=== PATIENT | female | born 1980 | race American Indian/Alaskan Native ===

== ENCOUNTER → 2017-07-20 | Outpatient (CLI) | payer MEDICAID | LOC: SLR 11:00 | PROVIDERS: ATTEND Specialist | DX: G47.30 Sleep apnea, unspecified (principal); I10 Essential (primary) hypertension | CPT/HCPCS: G0399 ==

== ENCOUNTER 2017-12-05 06:52 | Day surgery (SDC) | payer MEDICAID ==
[2017-12-05] MEDS ORDERED: NACL 0.9% 1000 ML 1,000 ML ONE (07:06)
[2017-12-05] MEDS ORDERED: WATER FOR IRRIG STERILE IR ONE (07:35)
[2017-12-05] MEDS ORDERED: HURRICAINE ONE 20% TOPICAL SPRAY MM ×2 (07:36→07:50)
[2017-12-05] MEDS ORDERED: DIPRIVAN 10 MG/ML IV ONE (07:56)
[2017-12-05] MEDS ORDERED: NACL 0.9% 1000 ML 1,000 ML IV SCH (08:00)
--- NOTE | 2017-12-05 08:20 | Anesthesia Consultation ---
Anesthesia Consult and Med Hx Date of service: 12/05/17 - Airway Anesthetic Teeth Evaluation: Good ROM Head & Neck: Adequate Mental/Hyoid Distance: Adequate Mallampati Class: Class III Intubation Access Assessment: Possibly Difficult - Pulmonary Exam CTA: Yes - Cardiac Exam Cardiac Exam: RRR - Pre-Operative Health Status ASA Pre-Surgery Classification: ASA3 Proposed Anesthetic Plan: MAC - Pulmonary Hx Asthma: (SEASONAL ALLERGIES) - Cardiovascular System Hx Hypertension: Yes - Gastrointestinal Hx Gastroesophageal Reflux Disease: Yes - Other Systems Hx Obesity: Yes
--- NOTE | 2017-12-05 08:21 | Anesthesia Day of Surgery ---
Anesthesia Day of Surgery - Day of Surgery Patient Examined: Yes Patient H&P Reviewed: Yes Patient is NPO: Yes
[2017-12-05 08:34] VITALS: BP 135/72
--- NOTE | 2017-12-05 12:13 | Operative Report ---
Operative Report Operative Report: EGD Post bypass DATE: 12/05/17 OPERATIVE REPORT - EGD PREOP DIAGNOSIS: gastric dyspepsia POSTOP DIAGNOSIS: same SURGERY: Upper endoscopy. SURGEON: Dr. Quinn Joshi ACCOUNTING ADMINISTRATOR: Sathya Courtney TYPE OF ANESTHESIA: MAC. ESTIMATED BLOOD LOSS: None. COMPLICATIONS: None. SPECIMENS REMOVED: None. FINDINGS: 1. normal esophagus 2. gastric pouch - 800ml 3. gastrojejunal anastomosis is 30mm 4. Small marginal ulcer INDICATIONS:INDICATION FOR PROCEDURE: Patient is a 37-year-old F s/p gastric bypass by a different provider in the past. The patient is here today for evaluation for revisional surgery. The patient is here for a planned EGD for gastric dyspepsia. PROCEDURE DETAILS: After consent was reviewed, patient was taken back to the operating room where patient was placed in the left lateral decubitus position and a bite block was placed in the mouth. After a time-out was called, MAC anesthesia was initiated. I then passed the endoscope into the patients oropharynx, into the esophagus, visualized the entire esophagus, which was all normal. I then visualized the gastric pouch which was normal and about 80ml in size. A small gastric ulcer was noted. No active bleeding . The gastrojejunal anastomosis was normal at about 30mm. The proximal portion of the damian limb was normal. I then desufflated the gastric pouch and removed the endoscope. Patient tolerated procedure well and was transferred to recovery room in good and stable condition. She will have carafate and omeprazole ordered.
--- NOTE | 2017-12-05 12:14 | Discharge Summary ---
Providers - Providers Attending physician: CARROLL VILLATORO Primary care physician: MERRY BURRIS Hospitalization Reason for admission: egd Procedures: egd Hospital course: Pt presented for EGD. She tolerated the procedure well. Disposition: - TO HOME OR SELFCARE Core Measure Documentation - Palliative Care Palliative Care/ Comfort Measures: Not Applicable - Core Measures Any of the following diagnoses?: none Exam - Physical Exam Narrative exam: no change from prior - Constitutional Vitals: Temp Pulse Resp BP Pulse Ox 98.2 F 69 14 135/72 100 12/05/17 08:03 12/05/17 08:33 12/05/17 08:33 12/05/17 08:33 12/05/17 08:33 Plan Follow up with: MERRY BURRIS MD [Primary Care Provider] - 7 Days
[2017-12-05] MEDS ORDERED: HURRICAINE ONE 20% TOPICAL SPRAY MM NR (15:00)
== END 2017-12-05 06:53 | disposition home or self-care (01) ==
LOC: GIO 06:52
PROVIDERS: ATTEND Specialist
DX: K28.9 Gastrojejunal ulcer, unspecified as acute or chronic, without hemorrhage or perforation (principal); K21.9 Gastro-esophageal reflux disease without esophagitis; I10 Essential (primary) hypertension; J45.909 Unspecified asthma, uncomplicated; E66.9 Obesity, unspecified; Z68.42 Body mass index [BMI] 45.0-49.9, adult; Z90.710 Acquired absence of both cervix and uterus; Z98.890 Other specified postprocedural states; Z98.84 Bariatric surgery status
CPT/HCPCS: 43235; J2704; J7030